=== PATIENT | female | born 1950 | race Caucasian/White ===

== ENCOUNTER → 2016-12-28 | Outpatient (CLI) | payer MEDICARE | END | disposition home or self-care (01) | LOC: CARD 12:16 | PROVIDERS: ATTEND Internal Medicine Cardiovascular Disease | DX: Q21.1 Atrial septal defect (principal); I95.9 Hypotension, unspecified | CPT/HCPCS: 94060; 94726; 94729 ==

== ENCOUNTER 2017-02-17 09:46 | Day surgery (SDC) | payer MEDICARE ==
[~2017-02-17 09:46] MED LIST: ALBU18HF INH; ASPI-496 PO; AZAT50TA9 PO; CARV3.1212 PO; CHOL500015 PO; ESTR0.5T PO; HYDR-3241 PO; ISOM1CAP PO; LACT1CAP37 PO; LEVO50TA PO; LEVO75TA PO; LOPE2CAP94 PO; TIOT18CA INH; TRAM50TA2 PO; lidocaine patch TD
[2017-02-17] MEDS ORDERED: SODIUM CHLORIDE 0.9% 1,000 ML IV SCH (10:30)
[2017-02-17] MEDS ORDERED: PLEASE ENTER HEIGHT AND WEIGHT MC SCH (11:00)
[2017-02-17] MEDS ORDERED: MIDAZOLAM 1 MG/ML, 5ML ONE (11:08)
[2017-02-17] MEDS ORDERED: FENTANYL PF 100 MCG/2ML ONE (11:08)
[2017-02-17] MEDS ORDERED: LIDOCAINE 2%, 20ML ONE (11:08)
[2017-02-17] MEDS ORDERED: HEPARIN 1,000 UNITS/ML, 10ML ONE (11:09)
[2017-02-17] MEDS ORDERED: PROPOFOL 10 MG/ML, 50ML ONE (11:17)
[2017-02-17] MEDS ORDERED: VERAPAMIL 2.5 MG/ML, 2ML ONE (11:25)
[2017-02-17] MEDS ORDERED: SODIUM CHLORIDE 0.9% 500 ML IV SCH (13:00)
[2017-02-17] MEDS ORDERED: IPRA15SP INH (13:33)
== END 2017-02-17 14:39 | disposition home or self-care (01) ==
LOC: CACL 09:46
PROVIDERS: ATTEND Internal Medicine Cardiovascular Disease
DX: R06.02 Shortness of breath (principal); I34.0 Nonrheumatic mitral (valve) insufficiency; J44.9 Chronic obstructive pulmonary disease, unspecified; I07.1 Rheumatic tricuspid insufficiency; I27.2 Other secondary pulmonary hypertension; Z79.82 Long term (current) use of aspirin; Z88.1 Allergy status to other antibiotic agents
CPT/HCPCS: 36415; 80048; 85025; 85610; 85730; 93312; 93321; 93325; 93456; 99156; 99157; C1894; J1644; J2250; J2704; J3010; J3490; Q9967

== ENCOUNTER 2018-08-25 09:24 | Day surgery (SDC) | payer MEDICARE ==
[~2018-08-25] VITALS: Ht 167.6 cm; Wt 75.0 kg
[~2018-08-25 09:24] MED LIST changes: +IPRA15SP INH
[2018-08-25 10:20] VITALS: BP 123/68
[2018-08-25] MEDS ORDERED: NITROGLYCERIN 0.4 MG BOTTLE (25 TABS) SL ONE (11:22)
== END 2018-08-25 13:05 | disposition home or self-care (01) ==
LOC: CACL 09:24
PROVIDERS: ATTEND Internal Medicine Cardiovascular Disease
DX: R55 Syncope and collapse (principal); I48.0 Paroxysmal atrial fibrillation; I10 Essential (primary) hypertension; I47.1 Supraventricular tachycardia; Z79.82 Long term (current) use of aspirin; Z88.1 Allergy status to other antibiotic agents
CPT/HCPCS: 93660

== ENCOUNTER 2019-06-27 11:07 | Day surgery (SDC) | payer MEDICARE ==
[~2019-06-27 11:07] MED LIST changes: +LOPE-114 PO; -LOPE2CAP94 PO
[2019-06-27] MEDS ORDERED: LIDOCAINE 2%, 20ML ONE (12:28)
== END 2019-06-27 13:23 | disposition home or self-care (01) ==
LOC: CACL 11:07
PROVIDERS: ATTEND Internal Medicine Cardiovascular Disease
DX: I48.0 Paroxysmal atrial fibrillation (principal); Q21.1 Atrial septal defect; I10 Essential (primary) hypertension; J44.9 Chronic obstructive pulmonary disease, unspecified; Z79.82 Long term (current) use of aspirin; Z79.891 Long term (current) use of opiate analgesic; Z79.890 Hormone replacement therapy; Z79.899 Other long term (current) drug therapy
CPT/HCPCS: 33285; C1764

== ENCOUNTER → 2019-08-20 | Outpatient (CLI) | payer MEDICARE | END | disposition home or self-care (01) | LOC: CFH 12:02 | PROVIDERS: ATTEND Physician Assistant Medical | DX: Z01.810 Encounter for preprocedural cardiovascular examination (principal); I25.9 Chronic ischemic heart disease, unspecified; I48.0 Paroxysmal atrial fibrillation; J43.9 Emphysema, unspecified | CPT/HCPCS: 71046; 78452; 93017; A9502 ==

== ENCOUNTER → 2020-05-01 | Outpatient (CLI) | payer MEDICARE, MEDICAID | END | disposition home or self-care (01) | LOC: CVU 06:30 | PROVIDERS: ATTEND Internal Medicine Cardiovascular Disease | DX: I73.9 Peripheral vascular disease, unspecified (principal); M79.662 Pain in left lower leg; M79.661 Pain in right lower leg | CPT/HCPCS: 93922; 93970 ==

== ENCOUNTER → 2020-07-07 | Outpatient (CLI) | payer MEDICARE | END | disposition home or self-care (01) | LOC: CFH 14:36 | PROVIDERS: ATTEND Registered Nurse | DX: Z12.2 Encounter for screening for malignant neoplasm of respiratory organs (principal); R91.1 Solitary pulmonary nodule; F17.211 Nicotine dependence, cigarettes, in remission | CPT/HCPCS: 71271 ==

== ENCOUNTER 2020-11-19 07:13 | Outpatient (CLI) | payer MEDICARE, MEDICAID ==
[~2020-11-19 07:13] MED LIST changes: -LACT1CAP37 PO; +LACT1CAP47 PO
== END 2020-11-19 23:59 | disposition home or self-care (01) ==
LOC: CVU 07:13
PROVIDERS: ATTEND Internal Medicine Cardiovascular Disease
DX: I36.1 Nonrheumatic tricuspid (valve) insufficiency (principal); I65.23 Occlusion and stenosis of bilateral carotid arteries; I73.9 Peripheral vascular disease, unspecified; I70.0 Atherosclerosis of aorta; I48.0 Paroxysmal atrial fibrillation
CPT/HCPCS: 93306; 93880

== ENCOUNTER → 2020-12-11 | Outpatient (CLI) | payer MEDICARE ==
[~2020-12-11] MED LIST changes: +OMNIPAQUE 350 MG/ML, 150 ML BOTTLE ONE
== END | disposition home or self-care (01) ==
LOC: CFH 12:42
PROVIDERS: ATTEND Internal Medicine
DX: I70.8 Atherosclerosis of other arteries (principal); I70.0 Atherosclerosis of aorta; K46.9 Unspecified abdominal hernia without obstruction or gangrene; I73.9 Peripheral vascular disease, unspecified; I48.0 Paroxysmal atrial fibrillation; J43.9 Emphysema, unspecified
CPT/HCPCS: 75635; 82565; Q9967

== ENCOUNTER 2021-03-12 11:30 | Day surgery (SDC) | payer MEDICARE, MEDICAID ==
[~2021-03-12] VITALS: Ht 167.6 cm; Wt 62.3 kg
== END 2021-03-12 12:32 | disposition home or self-care (01) ==
LOC: CACL 11:30
PROVIDERS: ATTEND Internal Medicine Cardiovascular Disease
DX: Z45.09 Encounter for adjustment and management of other cardiac device (principal); I48.0 Paroxysmal atrial fibrillation; Q21.1 Atrial septal defect; I10 Essential (primary) hypertension; I87.2 Venous insufficiency (chronic) (peripheral); I70.0 Atherosclerosis of aorta; E78.5 Hyperlipidemia, unspecified; J44.9 Chronic obstructive pulmonary disease, unspecified; Z79.01 Long term (current) use of anticoagulants; Z79.890 Hormone replacement therapy; Z79.891 Long term (current) use of opiate analgesic; Z79.899 Other long term (current) drug therapy